=== PATIENT | female | born 1970 | race Caucasian/White ===

== ENCOUNTER 2016-09-04 09:06 | Emergency (ER) | payer BC ==
[2016-09-04] MEDS ORDERED: Albuterol/Ipratropium NEB.SOL* Albuterol 2.5 MG/Ipratropium 0.5 MG 3 ML INH ONE (09:48)
--- NOTE | 2016-09-04 09:48 | UC ---
Respiratory Complaint HPI - HPI Summary HPI Summary: cough chest congestion and green urine for 2 days, "feels like I am falling apart", Was unable to sleep last night due to cough - History of Current Complaint Chief Complaint: UCGeneralIllness Stated Complaint: CHEST CONGESTION Time Seen by Provider: 09/04/16 09:43 Hx Obtained From: Patient ?: No Onset/Duration: Gradual Onset, Lasting Days, Still Present Timing: Constant Severity Initially: Moderate Severity Currently: Moderate Pain Intensity: 6 Pain Scale Used: 0-10 Numeric Character: Cough: Nonproductive Aggravating Factors: Deep Breaths, Recumbent Position Alleviating Factors: Nothing Associated Signs And Symptoms: Positive: Dyspnea, Fever - subjective, Pleuritic Chest Pain, URI, Nasal Congestion, Sinus Discomfort - Risk Factors Pulmonary Embolism Risk Factors: Negative Cardiac Risk Factors: Negative Pseudomonas Risk Factors: Negative Tuberculosis Risk Factors: Negative - Allergies/Home Medications Allergies/Adverse Reactions: Allergies Allergy/AdvReac Type Severity Reaction Status Date / Time No Known Allergies Allergy Verified 09/04/16 09:24 Home Medications: Home Medications Chlorpheniramine-Dm [Cough & Cold 4-30 mg] 1 tab 09/04/16 [History] PMH/Surg Hx/FS Hx/Imm Hx Previously Healthy: Yes - Surgical History Surgical History: Yes Surgery Procedure, Year, and Place: Appendix. Tubal ligation - Family History Known Family History: Positive: None Family History: denies cardiovascular issues in family lineage - Social History Occupation: Unemployed Lives: With Family Alcohol Use: Occasionally Substance Use Type: Marijuana Smoking Status (MU): Former Smoker Review of Systems Constitutional: Fever - subjective, Chills, Fatigue Skin: Negative Eyes: Negative ENT: Negative Respiratory: Shortness Of Breath, Cough Cardiovascular: Negative Gastrointestinal: Negative Genitourinary: Negative Motor: Negative Neurovascular: Negative Musculoskeletal: Negative Neurological: Negative Psychological: Negative All Other Systems Reviewed And Are Negative: Yes Physical Exam Triage Information Reviewed: Yes Appearance: No Pain Distress - mild, Ill-Appearing - moderate, Obese Vital Signs: Initial Vital Signs Temp 97 F 09/04/16 09:27 Pulse 105 09/04/16 09:27 Resp 20 09/04/16 09:27 Pulse Ox 100 09/04/16 09:27 Vital Signs Reviewed: Yes Eye Exam: Normal Eyes: Positive: Conjunctiva Clear ENT Exam: Normal ENT: Positive: Normal ENT inspection, Hearing grossly normal, Pharynx normal, TMs normal. Negative: Nasal congestion, Nasal drainage, Tonsillar swelling, Tonsillar exudate, Trismus, Muffled/hoarse voice Neck exam: Normal Neck: Positive: Supple, Nontender, No Lymphadenopathy Respiratory Exam: Normal Respiratory: Positive: Chest non-tender, Lungs clear, No accessory muscle use, Respiratory distress - mild due to cough, Wheezing - decreased Cardiovascular Exam: Other Cardiovascular: Positive: No Murmur, Pulses Normal, Brisk Capillary Refill, Tachycardia Musculoskeletal Exam: Normal Musculoskeletal: Positive: Strength Intact, ROM Intact, No Edema Neurological Exam: Normal Neurological: Positive: Alert, Muscle Tone Normal Psychological Exam: Normal Psychological: Positive: Normal Response To Family Skin Exam: Normal UC Diagnostic Evaluation - Laboratory O2 Sat by Pulse Oximetry: 100 Re-Evaluation - Re-Evaluation First Eval Change: Improved - chest tightness resolved cough is significantly better, emotional support provided and plan made to decrease work load this week to allow patient time to rest Respiratory Course/Dx - Course Course Of Treatment: albuterol, prednisone, zithromax, rest, increase fluids, follow with pcp re-check prn - Differential Dx/Diagnosis Differential Diagnosis/HQI/PQRI: Bronchitis, Influenza, Lower Resp Infection, Sinusitis Provider Diagnoses: Bronchitis with bronchospastic cough Discharge - Discharge Plan Condition: Stable Disposition: HOME Prescriptions: Albuterol HFA INHALER* [Ventolin HFA Inhaler*] 2 puff INH Q4H PRN #1 mdi PRN Reason: cough Azithromycin TAB* [Zithromax TAB (Z-HONG) 250 mg #6 tabs] 2 tab PO .TODAY, THEN 1 DAILY #1 hong Spacer/Aerosol-Holding Chamber [Aerochamber Plus] 1 mis .SEE ORDER SEE INSTRUCTIONS #1 mis guaiFENesin/CODIEN 100MG-10MG* [Robitussin AC 100Mg-10Mg*] 10 ml PO Q4H PRN #90 ml MDD 40 PRN Reason: cough Patient Education Materials: How to Use a Metered-Dose Inhaler (ED), Acute Bronchitis (ED), Bronchospasm (ED), Fatigue (ED) Referrals: [facility] [place] [facility] [place] [facility] [Outside] - 3 Days No Primary Care Phys,NOPCP [Primary Care Provider] -
[2016-09-04] MEDS ORDERED: predniSONE TAB* 20 MG PO ONE (09:49)
[2016-09-04 10:12] VITALS: BP 135/90
== END 2016-09-04 10:54 | disposition home or self-care (01) ==
LOC: MERGE 09:06 → UCEAST 09:06
DX: J20.9 Acute bronchitis, unspecified (principal); Z87.891 Personal history of nicotine dependence
CPT/HCPCS: 81002; 99202; A9270-GY; G0463; J7512

== ENCOUNTER 2019-07-22 20:38 | Emergency (ER) | payer BC ==
[2019-07-22] MEDS ORDERED: oxyCODONE/Acetamin 5/325 MG* TAB PO ONE ×2 (20:57→22:23)
[2019-07-22] MEDS ORDERED: Ketorolac INJ* 30 MG/ML 1 ML VIAL IM ONE (20:57)
--- OUTSIDE RECORDS SUMMARY | 2019-07-22 21:14 | XMS REPORT | Continuity of Care Document ---
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 Onset: 07/17/2013 Tobacco user Toya Mayo M.D. Onset: 07/17/2013 Anxiety state Toya Mayo M.D. Onset: 07/17/2013 Obesity Toya Mayo M.D. Onset: 07/17/2013 Stress fracture of metatarsal bone Satya Sloan MD Onset: 05/30/2019 Social History Type Date Description Comments Sex Unknown Tobacco Use Start: Unknown Patient is a current cigarette smoker, smokes every day Tobacco Use Start: Unknown Current Cigarette Smoker 1 1/2 Packs Daily Tobacco Use Start: Unknown 20 yr Smoking Status Reviewed: 06/27/19 20 yr ETOH Use Rarely consumes alcohol Recreational Drug Use Denies Drug Use Tobacco Use Start: Unknown End: Patient is a former quit in 2013 Unknown smoker Exercise Type/Frequency Does not exercise Exercise Type/Frequency Exercises regularly Exercise Type/Frequency stu, hike Allergies, Adverse Reactions, Alerts Active Allergies Reaction Severity Comments Date Adhesive 07/17/2018 Inactive Allergies NKDA 07/04/2013 Medications Active Medications SIG Qnty Indications Ordering Provider Date Lorazepam take 1 tabs as 30tabs 300.09 Linette Smith, 07/04/2013 0.5mg Tablets needed M.D. Anastrozole 1 by mouth every Unknown 1mg Tablets day Citalopram 1 by mouth every Unknown Hydrobromide day 20mg Tablets Diurex 1 tab by mouth Unknown 50-162.5mg twice daily Tablets Melatonin 1 tabs by mouth Unknown 5mg Tablets daily at bedtime Vitamin D3 take two capsule Unknown 14268Vozu by mouth once a Capsules week Vitamin B12 1 by mouth every Unknown 1000mcg day Tablets ER Naproxen 1 tablet with Unknown 500mg Tablets food by mouth twice a day as needed Medications Administered in Office Medication SIG Qnty Indications Ordering Provider Date Depomedrol 40MG KEYANA Marquez 04/24/2019 Injection Depomedrol 40MG KEYANA Marquez 07/17/2018 Injection Immunizations Description No Information Available Vital Signs Date Vital Result Comment 06/27/2019 1:44pm Height 62.25 inches 5'2.25" Weight 322.00 lb Heart Rate 91 /min BP Systolic Sitting 128 mmHg BP Diastolic Sitting 98 mmHg Respiratory Rate 18 /min Pain Level 2 O2 % BldC Oximetry 97 % BMI (Body Mass Index) 58.4 kg/m2 05/30/2019 1:46pm Height 62.25 inches 5'2.25" Heart Rate 90 /min Respiratory Rate 18 /min Body Temperature 97.6 F Pain Level 6 Results Description No Information Available Procedures Date Code Description Status 04/24/2019 35732 Inject Tendon Sheath Or Ligament Aponeurosis Eg Plantar Completed Fascia 12/31/2014 94241844 Mammogram Completed 07/08/2013 80112225 Mammogram Completed Medical Devices Description No Information Available Encounters Type Date Location Provider Dx Diagnosis Office Visit 05/30/2019 [facility] Elsie Hernandez84.374A Stress fracture, 1:45p at [facility] right foot, initial encounter for fracture Office Visit 04/24/2019 Carley Fontanez M65.311 Trigger thumb, 1:00p at [facility] right thumb Assessments Date Code Description Provider 06/27/2019 M76.71 Peroneal tendinitis, right leg Satya Sloan MD 05/30/2019 M84.374A Stress fracture, right foot, initial Satya Sloan MD encounter for fracture 04/24/2019 M65.311 Trigger thumb, right thumb KEYANA Marquez Plan of Treatment 06/27/2019 - Satya Sloan, MDM76.71 Peroneal tendinitis, right legNew Therapy: Physical TherapyFollow up:As needed Functional Status Description No Information Available Mental Status Description No Information Available Referrals Description No Information Available
--- OUTSIDE RECORDS SUMMARY | 2019-07-22 21:14 | XMS REPORT | Continuity of Care Document ---
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 Date Breast signs [...] Start: Unknown 20 yr Smoking Status Reviewed: 05/30/19 18 yr ETOH Use Rarely consumes alcohol [...] 1 by mouth every Unknown Hydrobromide day 40mg Tablets Diurex 1 tab by mouth Unknown 50-162.5mg twice daily Tablets Melatonin 1 tabs by mouth Unknown 5mg Tablets daily at bedtime Vitamin D3 take two capsule Unknown 36651Feso by mouth once a Capsules week Vitamin B12 1 by mouth every Unknown 1000mcg day Tablets ER Naproxen 1 tablet with Unknown 500mg Tablets food by mouth twice a day as needed Medications Administered in Office Medication SIG Qnty Indications Ordering Provider Date Depomedrol 40MG Breanne Fontanez [facility] 04/24/2019 Injection Depomedrol 40MG Breanne Fontanez [facility] 07/17/2018 Injection Immunizations Description No Information Available Vital Signs Date Vital Result Comment 05/30/2019 1:46pm Height 62.25 inches 5'2.25" Heart Rate 90 /min Respiratory Rate 18 /min Body Temperature 97.6 F Pain Level 6 04/24/2019 1:17pm Height 62.25 inches 5'2.25" Weight 300.00 lb Heart Rate 77 /min BP Systolic Sitting 138 mmHg BP Diastolic Sitting 102 mmHg Respiratory Rate 18 /min Pain Level 8 O2 % BldC Oximetry 97 % BMI (Body Mass Index) 54.4 kg/m2 Results Description No Information Available Procedures Date Code Description Status 04/24/2019 91225 Inject Tendon Sheath Or Ligament Aponeurosis Eg Plantar Completed Fascia 12/31/2014 [id number] Mammogram Completed 07/08/2013 [id number] Mammogram Completed Medical Devices Description No Information Available Encounters Type Date Location Provider Dx Diagnosis Office Visit 04/24/2019 [facility] Breanne Fontanez M65.311 Trigger thumb, 1:00p at [facility] right thumb Assessments Date Code Description Provider 05/30/2019 M84.374A Stress fracture, right foot, initial Satya Sloan MD encounter for fracture 04/24/2019 M65.311 Trigger thumb, right thumb KEYANA Marquez Plan of Treatment Future Appointment(s):06/27/2019 1:45 pm - Satya Sloan MD at [facility] at [facility]/30/2019 - Satya Sloan [id number] Stress fracture, right foot, initial encounter for fractureNew Xrays:Foot Right 3+ VWS, Ordered: 05/30/19Follow up:Follow Up: 4 weeks Functional Status Description No Information Available Mental Status Description No Information Available Referrals Description No Information Available
--- NOTE | 2019-07-22 21:57 | ED ---
Lower Extremity - HPI Summary HPI Summary: 48-year-old female presents with right foot injury today. States she tripped and fell and reinjured the same area she had previously broke. She had a previous stress fractures to 5th metatarsal 6 weeks ago that was healing. She states she has been in a boot for many weeks. She states that she has been having issues with it healing. Denies any numbness or tingling. She states the pain radiates up to her ankle. This pain is greatest in fifth metatarsal. pain is 10 out of 10. Denies any knee pain. - History of Current Complaint Chief Complaint: EDExtremityLower Stated Complaint: RIGHT FOOT INJURY PER EMS Time Seen by Provider: 07/22/19 20:51 Pain Intensity: 10 - Allergies/Home Medications Allergies/Adverse Reactions: Allergies Allergy/AdvReac Type Severity Reaction Status Date / Time No Known Allergies Allergy Verified 07/22/19 20:51 Home Medications: Home Medications Anastrozole (NF) [Arimidex (NF)] 1 mg PO DAILY 07/22/19 [History Confirmed 07/22] Citalopram TAB* [CeleXA TAB*] 40 mg PO DAILY 07/22/19 [History Confirmed ] Naproxen TAB* [Naprosyn 250 mg TAB*] 500 mg PO BID PRN 07/22/19 [History Confirmed 07/22/19] Ranitidine TAB (NF) [Zantac TAB (NF)] 150 mg PO BID 07/22/19 [History Confirmed 07/22/19] PMH/Surg Hx/FS Hx/Imm Hx Endocrine/Hematology History: Denies: Hx Anticoagulant Therapy Respiratory History: Denies: Hx Asthma - Cancer History Hx Chemotherapy: No Hx Radiation Therapy: No - Surgical History Surgery Procedure, Year, and Place: Appendix. Tubal ligation. GALLBLADDER. RT BREAST LUMPECTOMY - Immunization History Date of Tetanus Vaccine: unk Date of Influenza Vaccine: unk Infectious Disease History: No Infectious Disease History: Denies: Traveled Outside the [place] in Last 30 Days - Family History Known Family History: Positive: None Family History: denies cardiovascular issues in family lineage - Social History Alcohol Use: Occasionally Substance Use Type: Reports: Marijuana Smoking Status (MU): Former Smoker Review of Systems Negative: Fever Negative: Chest Pain Negative: Shortness Of Breath Positive: Myalgia - right fot pain All Other Systems Reviewed And Are Negative: Yes Physical Exam Triage Information Reviewed: Yes Vital Signs On Initial Exam: Initial Vitals Temp Pulse Resp BP Pulse Ox 98.2 F 82 18 166/93 96 07/22/19 20:49 07/22/19 20:49 07/22/19 20:49 07/22/19 20:49 07/22/19 20:49 Vital Signs Reviewed: Yes Appearance: Positive: Well-Appearing Skin: Positive: Warm, Dry Head/Face: Positive: Normal Head/Face Inspection Eyes: Positive: Normal, Conjunctiva Clear ENT: Positive: Pharynx normal Respiratory/Lung Sounds: Positive: Clear to Auscultation, Breath Sounds Present Cardiovascular: Positive: Normal, RRR Musculoskeletal: Positive: Limited @ - right foot, Other - tenderness 5th metatarsal, good pulses, sensation grossly intact, no edema to the area Neurological: Positive: Normal Psychiatric: Positive: Normal Procedures - Sedation Patient Received Moderate/Deep Sedation with Procedure: No - Splinting foot Location: right foot Hand-Made Type: orthoglass Splint: posterior walking Pre-Proc Neuro Vasc Exam: normal Post-Proc Neuro Vasc Exam: normal Splint Applied by Provider: Armida Hansen Diagnostics - Vital Signs Vital Signs Temp Pulse Resp BP Pulse Ox 07/22/19 21:05 18 07/22/19 20:49 98.2 F 82 18 166/93 96 - Laboratory Lab Statement: Any lab studies that have been ordered have been reviewed, and results considered in the medical decision making process. - Radiology foot Radiology Interpretation Completed By: ED Physician Summary of Radiographic Findings: 5th metatarsal fractre Re-Evaluation - Re-Evaluation First Eval Re-Evaluation Time: 22:43 Change: Worse Comment: states splint is causing too much pain and requesting more pain meds Lower Extremity Course/Dx - Course Course Of Treatment: 48-year-old female presents with right foot injury today. States she tripped and fell and reinjured the same area she had previously broke. She had a previous stress fractures to 5th metatarsal 6 weeks ago that was healing. She states she has been in a boot for many weeks. She states that she has been having issues with it healing. Denies any numbness or tingling. She states the pain radiates up to her ankle. This pain is greatest in fifth metatarsal. pain is 10 out of 10. Denies any knee pain. On exam has tenderness 5th metatarsal. Neurovascular intact. No edema noted on exam. X- ray shows nondisplaced 5th metatarsal fracture. Placed in a posterior splint. Patient states that boot cause her too much pain. neurovascular intact after splint. Gave crutches. We'll have follow-up with orthopedic. Patient understands and agrees the plan. - Diagnoses Differential Diagnosis/HQI/PQRI: Positive: Fracture (Closed), Sprain, Strain Provider Diagnoses: Closed fracture of 5th metacarpal Discharge ED - Sign-Out/Discharge Documenting (check all that apply): Patient Departure - Discharge Plan Condition: Good Disposition: HOME Prescriptions: HYDROcodone/ACETAMIN 5-325 MG* [[place] 5-325 TAB*] 1 tab PO Q6H PRN #12 tab MDD 4 PRN Reason: Pain - Severe Patient Education Materials: Foot Fracture in Adults (ED) Referrals: Dinora Garcia MD [Primary Care Provider] - Satya Sloan MD [Medical Doctor] - Additional Instructions: Use crutches Keep splint on area and keep dry follow up with ortho as scheduled Use ibuprofen for pain every 6 hours and use narcotic for breakthrough pain Ice, elevate Return to ED if develop any new or worsening symptoms - Billing Disposition and Condition Condition: GOOD Disposition: Home
[2019-07-22 23:07] VITALS: BP 142/73
== END 2019-07-22 23:00 | disposition home or self-care (01) ==
LOC: ED 20:38
DX: S62.306A Unspecified fracture of fifth metacarpal bone, right hand, initial encounter for closed fracture (principal); W01.0XXA Fall on same level from slipping, tripping and stumbling without subsequent striking against object, initial encounter; Y92.9 Unspecified place or not applicable
CPT/HCPCS: 96372; 99282; A9270-GY; J1885